=== PATIENT | male | born 1980 | race Caucasian/White ===

== ENCOUNTER 2019-06-21 14:51 | Emergency (ER) | payer BC ==
[~2019-06-21] VITALS: Ht 193 cm; Wt 104.3 kg
== END 2019-06-21 15:50 | disposition left against medical advice (07) ==
LOC: ED 14:51
DX: S00.81XA Abrasion of other part of head, initial encounter (principal); W17.89XA Other fall from one level to another, initial encounter; Y93.53 Activity, golf; Y92.89 Other specified places as the place of occurrence of the external cause; Y99.8 Other external cause status